=== PATIENT | female | born 2005 | race Caucasian/White ===

== ENCOUNTER → 2025-01-24 | Outpatient (CLI) | payer OTHER ==
[~2025-01-24] MED LIST: AMOX50SU PO; PRED15SY PO
[2025-01-24 14:29] LABS: Chlamydia Trachomatis Urine NOT DETECTED (NOT DETECT); Neisseria Gonorrhoea Urine NOT DETECTED (NOT DETECT)
== END ==
LOC: LAB SHORT 09:00 → LAB 09:00
PROVIDERS: Student in an Organized Health Care Education/Training Program
DX: Z11.3 Encounter for screening for infections with a predominantly sexual mode of transmission (principal)
CPT/HCPCS: 87491; 87591